=== PATIENT | female | born 2000 | race Caucasian/White ===

== ENCOUNTER 2020-11-13 19:51 | Emergency (ER) | payer MEDICAID ==
[~2020-11-13] VITALS: Ht 160 cm; Wt 56.7 kg
[2020-11-13 20:10] VITALS: BP_SYST 115
--- NOTE | 2020-11-13 20:10 | NUR ---
PT TO REMAIN IN ER LOBBY UNTIL ER BED BECOMES AVAILABLE
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
--- NOTE | 2020-11-13 21:10 | NUR ---
DR. WREN TO TRIAGE TO EVALUATE PT STATUS
--- NOTE | 2020-11-13 21:15 | NUR ---
PT TO [place] [id number], REPORT TO TUCKER MOURA.
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
[2020-11-13 21:37] LABS: BASOPHILS % (AUTO) 0.3 % (0.0-2.0); EOSINOPHILS # (AUTO) 0.1 K/uL (0.0-0.4); EOSINOPHILS % (AUTO) 0.9 % (0.0-4.0); HEMATOCRIT 37.8 % (36-48); LYMPHOCYTES # (AUTO) 1.2 K/uL (1.0-5.5); LYMPHOCYTES % (AUTO) 11.4 % (20.5-51.5); MEAN CORPUSCULAR HEMOGLOBIN 34 pg (27-31); MEAN CORPUSCULAR HGB CONC 34 % (32-36); MEAN CORPUSCULAR VOLUME 98 fL (79.0-98.0); MONOCYTES # (AUTO) 0.9 K/uL (0.0-1.0); MONOCYTES % (AUTO) 7.9 % (1.7-9.3); NEUTROPHILS # (AUTO) 8.6 K/uL (1.8-7.7); NEUTROPHILS % (AUTO) 79.5 % (40.0-70.0); PLATELET COUNT (AUTO) 338 K/uL (130-430); RED BLOOD CELL COUNT(AUTO) 3.86 MIL/uL (4.2-6.2); RED CELL DISTRIBUTION WIDTH 13.5 % (9.0-15.0); WHITE BLOOD COUNT (AUTO) 10.8 K/uL (4.8-10.8)
--- NOTE | 2020-11-13 21:39 | NUR ---
ALERT, CALM, RESP UNLABORED, SKIN WARM AND DRY. DENIES SOB. NO DYSPNEA, COMMUNICATES CLEARLY IN FULL COMPLETE SENTNECES
[2020-11-13 21:58] VITALS: BP_SYST 119
[2020-11-13] MEDS ORDERED: KETOROLAC TROMETHAMINE 60 MG/2 ML VIAL IM ONE (22:01)
[2020-11-13] MEDS: KETOROLAC TROMETHAMINE 60 MG/2 ML VIAL IM ONE (22:03)
== END 2020-11-13 21:58 | disposition home or self-care (01) ==
LOC: SED 19:51
DX: S22.32XA Fracture of one rib, left side, initial encounter for closed fracture (principal); X58.XXXA Exposure to other specified factors, initial encounter; Y93.89 Activity, other specified; Y92.89 Other specified places as the place of occurrence of the external cause; Y99.8 Other external cause status
CPT/HCPCS: 36415; 71045; 71100; 81002; 81025; 85025; 96372; 99284; J1885